=== PATIENT | male | born 1995 | race Caucasian/White ===

== ENCOUNTER 2019-12-23 21:47 | Emergency (ER) | payer OTHER, SELFPAY ==
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
[2019-12-23 21:55] VITALS: BP 152/81; PULSE 117; RESP 18; TEMP 37.2; O2SAT 96
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
[2019-12-23 22:37] VITALS: BP 127/71; BP 133/88; PULSE 106; PULSE 88; RESP 18; RESP 19; TEMP 37.2; O2SAT 98; O2SAT 99
== END 2019-12-23 22:45 | disposition short-term general hospital (02) ==
PROVIDERS: Emergency Provider Emergency Medicine
DX: S29.8XXA Other specified injuries of thorax, initial encounter (principal); J45.909 Unspecified asthma, uncomplicated; V28.4XXA Motorcycle driver injured in noncollision transport accident in traffic accident, initial encounter
CPT/HCPCS: 71045; 99285

== ENCOUNTER 2021-04-04 13:43 | Outpatient (CLI) | payer OTHER, SELFPAY ==
--- NOTE | ~2021-04-04 | CT_ITS ---
EXAMINATION: CT abdomen pelvis wo con DATE: 04/04/2021 14:16 INDICATION: Left abdominal pain radiating to the groin. TECHNIQUE: Computed tomography (CT) of the abdomen and pelvis was performed without intravenous contr ast. Automated exposure control and iterative reconstruction technique were employed. The dose-length product was 501.58 mGy-cm. COMPARISON: CT abdomen and pelvis 07/26/2016 FINDINGS: The visualized portions of the lung bases are clear without pneumonia or pleural effusion. The heart size is normal. No pericardial effusion. The liver, gallbladder, spleen, pancreas, adrenal glands, and kidneys are normal. There is no urolithiasis. There are no dilated loops of bowel. The ap pendix is normal. There are no pathologically enlarged lymph nodes. There is no free intraperitoneal fluid. There is mild lumbar spondylosis. IMPRESSION: 1. No etiology for the patient's symptoms. Reviewed, dictated and finalized at location A.
== END 2021-04-04 13:44 | disposition home or self-care (01) ==
LOC: ANHIMG 13:45
PROVIDERS: PCP Internal Medicine; Visit Provider Clinical Nurse Specialist
DX: R10.9 Unspecified abdominal pain (principal); N50.812 Left testicular pain
CPT/HCPCS: 74176

== ENCOUNTER 2021-04-20 15:34 | Outpatient (CLI) | payer OTHER, SELFPAY ==
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
== END 2021-04-20 15:35 | disposition home or self-care (01) ==
PROVIDERS: PCP Internal Medicine; Visit Provider Clinical Nurse Specialist
DX: N50.812 Left testicular pain (principal)
CPT/HCPCS: 76870; 93976